=== PATIENT | female | born 1990 | race Caucasian/White ===

== ENCOUNTER 2025-02-05 13:04 | Emergency (ER) | payer SELFPAY ==
[2025-02-05] MEDS ORDERED: Proparacaine 0.5% Opth 15 ML BOT ONE (15:23)
[2025-02-05] MEDS ORDERED: Fluorescein Opthalmic Strip ONE (15:23)
[2025-02-05] MEDS ORDERED: Cephalexin 250 MG CAP ONE (16:12)
[2025-02-05] MEDS ORDERED: Sulfameth/Trimethoprim DS 800-160mg TAB ONE (16:12)
== END 2025-02-05 16:18 | disposition home or self-care (01) ==
LOC: ERS 13:04
DX: L03.213 Periorbital cellulitis (principal); F17.210 Nicotine dependence, cigarettes, uncomplicated
CPT/HCPCS: 96372; 99282; J2919